=== PATIENT | male | born 1985 | race Caucasian/White ===

== ENCOUNTER 2021-06-25 21:51 | Emergency (ER) | payer OTHER ==
[~2021-06-25] VITALS: Ht 175.3 cm; Wt 69.1 kg
--- NOTE | 2021-06-25 22:25 | PHYS DOC ---
General Adult EDM: Chief Complaint: ANKLE PROBLEM HPI: HPI: Patient is a 36-year-old male coming in for right ankle pain. Patient was playing volleyball when he came down wrong and rolled his right ankle in inversion direction. No other injuries Review of Systems: Review of Systems: All other systems within normal limits except for as noted in the HPI Allergies: Allergies: Allergies Coded Allergies Type Severity Reaction Last Updated Verified No Known Drug Allergies 06/25/21 No Physical Exam: PE: Constitutional: Well developed, well nourished, no acute distress, non-toxic appearance. [] HENT: Normocephalic, atraumatic, bilateral external ears normal, nose normal. [] Eyes: PERRLA, conjunctiva normal, no discharge. [] Neck: No rigidity, supple, no stridor. [] Cardiovascular: Regular rate and rhythm, brisk cap refill [] Lungs & Thorax: Non labored symmetric respirations, no tachypnea or respiratory distress [] Abdomen: Soft, nondistended. Skin: Warm, dry, no erythema, no rash. [] Back: Unremarkable Extremities: No deformities, range of motion grossly intact, no lower extremity edema. Right ankle swelling and tenderness over right malleolus. No tenderness over fifth metatarsal, no tenderness over calcaneus or pain with tib-fib squeeze [] Neurologic: Alert and oriented X 3, no focal deficits noted. [] Psychologic: Affect normal, judgement normal, mood normal. [] EKG: EKG: [] Radiology/Procedures: Radiology/Procedures: [place] [address] IMAGING REPORT Signed PATIENT: STANTON TAYLOR ACCOUNT: [id number] : 1985 LOCATION: ER AGE: 36 SEX: M EXAM STATUS: REG ER ORD. PHYSICIAN: GABRIEL CALLOWAY MD REASON: INJURY, LATERAL PAIN PROCEDURE: ANKLE RIGHT 3V Study: XR EXAM OF ANKLE_RIGHT 3VIEWS Indication: Injury. Lateral ankle pain. Comparison: None. Findings: Anterolateral ankle soft tissue edema. The malleoli are intact. Symmetric ankle mortise. Unremarkable talar dome. No fracture seen throughout the partially imaged foot. Impression: Soft tissue edema at the ankle. No fracture is identified or traumatic malalignment. Electronically signed by: GÉNESIS QUINTANILLA MD (06/25/2021 11:04 PM) [facility] DICTATED AND SIGNED BY: GÉNESIS QUINTANILLA MD DATE: 06/25/212302 CC: GABRIEL CALLOWAY MD; PCP,NO ~ [] Heart Score: C/O Chest Pain: No Risk Factors: Risk Factors: DM, Current or recent (<one month) smoker, HTN, HLP, family history of CAD, obesity. Risk Scores: Score 0 - 3: 2.5% MACE over next 6 weeks - Discharge Home Score 4 - 6: 20.3% MACE over next 6 weeks - Admit for Clinical Observation Score 7 - 10: 72.7% MACE over next 6 weeks - Early Invasive Strategies Course & Med Decision Making: Course & Med Decision Making Pertinent Labs and Imaging studies reviewed. (See chart for details) [] Mily Disclaimer: Dragon Disclaimer: This electronic medical record was generated, in whole or in part, using a voice recognition dictation system. Departure Departure: Impression: Primary Impression: Right ankle sprain Disposition: HOME / SELF CARE / HOMELESS Condition: STABLE Referrals: PCP,NO (PCP) Patient Instructions: Ankle Sprain, Acute, with Phase I Rehab-SportsMed GABRIEL CALLOWAY MD Jun 25, 2021 22:25
--- NOTE | 2021-06-25 23:06 | RAD ---
Study: XR EXAM OF ANKLE_RIGHT 3VIEWS Indication: Injury. Lateral ankle pain. Comparison: None. Findings: Anterolateral ankle soft tissue edema. The malleoli are intact. Symmetric ankle mortise. Unremarkable talar dome. No fracture seen throughout the partially imaged foot. Impression: Soft tissue edema at the ankle. No fracture is identified or traumatic malalignment. Electronically signed by: GÉNESIS QUINTANILLA MD (06/25/2021 11:04 PM) [facility]
[2021-06-25] MEDS ORDERED: IBUPROFEN 600 MG TABLET. PO ONE (23:15)
[2021-06-25 23:44] VITALS: BP 128/84
== END 2021-06-25 23:48 | disposition home or self-care (01) ==
LOC: ER 21:51
DX: S93.401A Sprain of unspecified ligament of right ankle, initial encounter (principal); X50.9XXA Other and unspecified overexertion or strenuous movements or postures, initial encounter; Y93.68 Activity, volleyball (beach) (court); Y92.89 Other specified places as the place of occurrence of the external cause; Y99.8 Other external cause status
CPT/HCPCS: 73610; 99283